=== PATIENT | female | born 1970 | race Caucasian/White ===

== ENCOUNTER 2016-11-12 23:42 | Emergency (ER) | payer OTHER ==
[2016-11-12 23:55] LABS: HEMOGLOBIN 14.9 gm/dl (12.3-15.3); RED BLOOD COUNT 4.55 M/UL (4.00-5.10); WHITE BLOOD COUNT 10.8 K/UL (4.5-11.0)
[2016-11-13 01:20] LABS: BUN/CREATININE RATIO 22 (0-10)
== END 2016-11-13 02:52 | disposition home or self-care (01) ==
LOC: ER1 23:42
PROVIDERS: Emergency Medicine
DX: S09.90XA Unspecified injury of head, initial encounter (principal); S19.9XXA Unspecified injury of neck, initial encounter; M79.89 Other specified soft tissue disorders; V86.69XA Passenger of other special all-terrain or other off-road motor vehicle injured in nontraffic accident, initial encounter
CPT/HCPCS: 36415; 70450; 71250; 72125; 73590; 73630; 80053; 80307; 81001; 83690; 85025; 85610; 85730; 87086; 96361; 96374; 99284; G0480; J1885

== ENCOUNTER → 2020-10-02 | Outpatient (CLI) | payer OTHER ==
[~2020-10-02] MED LIST: AUGMENTIN 875-1 EACH PO; BENTYL 20MG TAB20 MG PO; CELEBREX200 MG PO; FAMOTIDINE20 MG PO; FLAGYL500 MG PO; IBUPROFEN600 MG PO; LEVOTHYROXINE88 MCG PO; LODINE CAP 300300 MG PO; NORCO 5-325 TA1 EACH PO; NORFLEX 100 MG100 MG PO; PEG3350510 GM PO; PHENERGAN 12.12.5 MG PR; PROTONIX 40 MG40 M1 PO; PROZAC 10 MG CA10 MG PO; ROBAXIN-750750 MG PO; TORADOL 10 MG T10 MG PO; WELLBUTRIN SR150 M1 PO; ZOFRAN ODT 4 MG4 MG SL; ZYVOX600 MG PO
[2020-10-02 12:19] LABS: RED BLOOD COUNT 4.71 M/UL (4.00-5.10); WHITE BLOOD COUNT 10.4 K/UL (4.5-11.0)
[2020-10-02 12:42] LABS: BUN/CREATININE RATIO 18 (0-10)
== END ==
LOC: LAB 11:17
PROVIDERS: Family Medicine
DX: E03.9 Hypothyroidism, unspecified (principal); R53.83 Other fatigue
CPT/HCPCS: 36415; 80053; 80061; 82607; 84439; 84443; 85027

== ENCOUNTER 2021-05-17 12:27 | Emergency (ER) | payer OTHER | END 2021-05-17 16:25 | disposition home or self-care (01) | LOC: ER1 12:27 | DX: S80.02XA Contusion of left knee, initial encounter (principal); S80.01XA Contusion of right knee, initial encounter; Z85.43 Personal history of malignant neoplasm of ovary; W22.8XXA Striking against or struck by other objects, initial encounter | CPT/HCPCS: 73564; 99283 ==

== ENCOUNTER → 2021-11-09 | Outpatient (CLI) | payer OTHER | LOC: KOH-I 15:20 | DX: M54.2 Cervicalgia (principal) | CPT/HCPCS: 72040 ==

== ENCOUNTER 2021-12-14 20:15 | Emergency (ER) | payer OTHER ==
[2021-12-14 21:06] LABS: HEMOGLOBIN 14.4 gm/dl (12.3-15.3); RED BLOOD COUNT 4.39 M/UL (4.00-5.10); WHITE BLOOD COUNT 9.4 K/UL (4.5-11.0)
[2021-12-14 21:28] LABS: BUN/CREATININE RATIO 17 (0-10)
[2021-12-15] MEDS ORDERED: MIRALAX17 GM PO (00:29)
== END 2021-12-15 00:28 | disposition home or self-care (01) ==
LOC: ER1 20:15
PROVIDERS: Physician Assistant Medical
DX: K59.00 Constipation, unspecified (principal); Z88.6 Allergy status to analgesic agent
CPT/HCPCS: 80053; 81001; 83605; 83690; 85025; 99284; Q9967

== ENCOUNTER 2022-01-09 20:55 | Emergency (ER) | payer OTHER ==
[~2022-01-09 20:55] MED LIST changes: +MIRALAX17 GM PO
== END 2022-01-09 23:40 | disposition home or self-care (01) ==
LOC: ER1 20:55
DX: S93.402A Sprain of unspecified ligament of left ankle, initial encounter (principal); Z88.8 Allergy status to other drugs, medicaments and biological substances; Z88.6 Allergy status to analgesic agent; Z88.5 Allergy status to narcotic agent; W18.42XA Slipping, tripping and stumbling without falling due to stepping into hole or opening, initial encounter
CPT/HCPCS: 73610; 99283